=== PATIENT | female | born 1935 | race Caucasian/White ===

== ENCOUNTER 2017-02-14 16:00 | Emergency (ER) | payer MEDICARE, MEDICAID ==
[~2017-02-14] VITALS: Ht 157.5 cm; Wt 46.3 kg
[~2017-02-14 16:00] MED LIST: AMIODARONE 100100 MG; AMIODARONE 200200 MG OR; AMIODARONE 200200 MG PO; AMLODIPINE5 MG PO; ASPIRIN 81MG TA81 MG PO; AVELOX400 MG OR; AZITHROMYCIN250 M1 PO; BENADRYL25 M1 PO; CALCIUM ACETAT667 MG PO; CARVEDILOL12.5 MG PO; CEFDINIR 300MG300 MG PO; CYANOCOBAL1000 MCG/M IM; ENALAPRIL5 MG OR; ERGOCALCIFER50000 IU PO; LEVAQUIN 750 M750 MG PO; LEVAQUIN250 MG PO; LEVOTHYROXIN0.175 MG PO; LEVOTHYROXINE0.1 MG PO; LIPITOR10 MG PO; MACROBID 100MG100 MG PO; NEPHRO-VITE RX1 TAB PO; OMEPRAZOLE20 MG PO; PHENERGAN 12.12.5 M1 PO; PHENERGAN 25MG.25 M1 PO; PREDNISONE 10MG10 MG PO; PREDNISONE 20MG20 MG OR; RENVELA800 MG PO; SERTRALINE 50MG50 MG PO; SERTRALINE50 MG PO; SUNMARK MUCUS600 MG PO; TRIAMCINOLON 0.15 GM TP; Tramadol HCl50 MG PO; VIBRAMYCIN 100100 MG PO; VITAMIN D1000 IU PO; VITAMIN D2400 IU; ZITHROMAX 250M250 MG PO; ZITHROMAX Z PA250 MG PO; ZOFRAN ODT4 MG PO; ZOFRAN4 MG PO
[2017-02-14] MEDS ORDERED: ZOFRAN4 MG PO (16:11)
[2017-02-14] MEDS ORDERED: RENA-VITE RX1 TAB PO (16:17)
[2017-02-14] MEDS ORDERED: DONEPEZIL 10MG10 MG PO (16:17)
[2017-02-14 16:52] LABS: HEMOGLOBIN 12.3 g/dL (12.2-16.2); LYMPH # 0.6 K/mm3 (0.7-4.5); LYMPH % 18.2 % (10-50.0)
[2017-02-14] MEDS ORDERED: ZOFRAN ODT4 MG PO (17:30)
--- NOTE | 2017-02-14 17:30 | Emergency Room Report ---
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 PT REPORTS THAT DESTINY WAS AT HER HOUSE TO SEE HER YESTERDAY FOR THERAPY ON HER RIGHT ARM BUT SHE WAS TOO SICK AND UNABLE TO PARTICIPATE. PT REPORTS THAT SHE FELL LAST MONDAY AND INJURED RIGHT ARM. 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 N Clinical Suspician of Infection? N Mental Status: 1 - Regular (Normal Baseline) Sepsis Risk:Low Sepsis Risk Have you (or family members/close friends) recently traveled outside the [place]? N If Yes, where/when: Have you had exposure to infectious disease within the past month? N TB? Other? Specify: Patient had loose stools today, no blood, no fever, no abdominal pain. Had HD today. Recently injured right arm and seen by her PCP for this. She states that for the past month or two she vomits after she eats. She has no chest pain today or palpitations. She was given Zofran per EMS HAT PARTS CUTTER MACHINE and nausea and vomiting have abated. ALLERGIES Coded Allergies: Sulfa (Sulfonamide Antibiotics) (12/02/15) cephalexin (12/02/15) clopidogrel (12/02/15) guaifenesin (12/02/15) Home Medications Reported Medications ASPIRIN (Aspirin) 81 MG PO DAILY Levothyroxine Sodium (Levothyroxine 0.175MG) 0.175 MG PO DAILY Calcium Acetate 2 CAP PO CC Sertraline Hcl (Sertraline 50MG) 50 MG PO QHS Amiodarone Hcl (Amiodarone 200MG) 100 MG PO DAILY CHOLECALCIFEROL (VITAMIN D3) (Vitamin D3) 2,000 IUNITS PO DAILY Sevelamer Carbonate (Renvela) 800 MG PO DAILY ONDANSETRON HCL (Zofran 4MG Tab) 4 MG PO DAILY DONEPEZIL HCL (Donepezil 10MG Tablet) 5 MG PO QHS VIT B CMPLX 3/FA/VIT C/BIOTIN (Leatha-[facility] Rx Tablet) 1 TAB PO DAILY History Medical History General CAD? Yes Angina: Yes [place]: Yes Hypertension? Yes Hyperlipidemia? Yes CHF? Yes DVT? No PE? No COPD? Yes Asthma? No Anemia? No GERD? Yes Gastric ulcers? No GI Bleed? No Hernia? No Thyroid Problems? Yes Hypothyroidism? Yes CVA? No Seizures? No Diabetes? No Renal Insuffiency? Yes End Stage Renal Disease? Yes UTI? Yes Stones? No BPH? No GB Disease: Yes Nephritic Syndrome? No Asplenia? No Hepatitis? No Sickle Cell Disease? No Arthritis? Yes Migraines? No Cataracts? No Glaucoma? No MRSA? No HIV? No TB? No Anxiety? Yes Depression? Yes Cancer? No More? No Immunization Hx DT/Tetanus Unknown Flu [id number] Flu Season Pneumonia Received In Past Surgical Hx Previous Surgery?Y CARDIAC BYPASS 2000 GALLBLADDER THYROIDECTOMY SHILEY CATH RT CHEST 12/01 FISTULA L ARM 04/02 PACEMAKER 12/14/09 BILAT EYE SURG. Family History Family Hx Diabetes Yes CAD Yes Hypertension No Hyperlipidemia No Cancer Yes TB No Social History Smoking Hx Smoker: Former Smoker Tobacco: No Packs/day N/A Alcohol Alcohol: No Review of Systems All Other Systems Reviewed and Negative Gastrointestinal see HPI, denies abdominal pain, denies constipation, diarrhea, nausea, vomiting Musculoskeletal see HPI Physical Exam Vital Signs Vital Signs Date Time Temp Pulse Resp B/P Pulse O2 O2 Flow FiO2 Ox Delivery Rate 02/14 1717 71 20 185/84 100 2 02/14 1601 97.7 70 20 187/65 100 2 General Appearance normal appearance, WD/WN, no apparent distress Eye Exam - bilateral eye normal exam, bilateral eye PERRL, bilateral eye EOMI Neck normal inspection, non-tender, supple, full range of motion Respiratory Status Yes: trachea midline, chest symmetrical, non tender chest. No: respiratory distress, tender on palpation, use of accessory muscles, pain on inspiration, pain on expiration, productive cough, non productive cough. Lung Sounds bilateral: normal breath sounds, lungs clear. 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 No Results/Orders Laboratory Tests 02/14/17 1640: Lactic Acid 0.8 02/14/17 1640: Sodium 139, Potassium 4.6, Chloride 103, Carbon Dioxide 33 H, BUN 9, Creatinine 2.5 H, Estimated Creat Clear 13 L, Estimated GFR (MDRD) 18 *L, Glucose 101, Calcium 8.1 L, Total Bilirubin 0.5, AST 19, ALT 20, Alkaline Phosphatase 186 H , Total Protein 7.3, Albumin 3.4, Globulin 3.9 H, Albumin/Globulin Ratio 0.9 L , WBC 3.1 L, RBC 3.90 L, Hgb 12.3, Hct 42.5, MCV 109.0 H, RDW 15.1, Plt Count 90 L, MPV 6.4 L, Gran % 73.4, Gran # 2.3, Lymphocytes % 18.2, Monocytes % 5.7, Eosinophils % 2.2, Basophils % 0.5, Lymphocytes # 0.6 L, Monocytes # 0.2, Eosinophils # 0.1, Basophils # 0.0, PUBS MCHC 29.0 L, MCH 31.6 H 02/14/17 1627: Urine Color Cancelled, Urine Appearance Cancelled, Urine pH Cancelled, Ur Specific [place] Cancelled Orders Procedure Date/time Status LACTIC ACID 02/14 1631 Complete CHEST-PORTABLE 02/14 1627 Active CULTURE, BLOOD 02/14 1627 Active CBC WITH AUTO DIFF 02/14 1627 Complete CHEM 12 PROFILE 02/14 1627 Complete Progress ED Progress Notes Date 02/14/17 Time 1728 Comment PO fluids Departure Departure Time of Disposition 1728 Disposition DC Home or Self Care(routine) Clinical Impression Primary Impression: Vomiting and diarrhea Condition STABLE Referrals Jens Brooks MD (Family) Patient Instructions Diarrhea (Alternative Therapy) Additional Instructions Zofran, see Dr. Brooks in one to two days for recheck blood pressure and recheck for vomiting and diarrhea. Discharge Counseling Counseled pt/family regarding diagnosis, test results, medications/RX, home care, follow up needs Prescriptions Current Visit Scripts Ondansetron (Zofran 4MG Odt) 4 MG PO Q6HP PRN NAUSEA AND VOMITING #6 ODT ED Critical Care Critical Care No at [id number]
--- NOTE | 2017-02-14 17:30 | Emergency Room Report ---
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 PT REPORTS THAT DESTINY WAS AT HER HOUSE TO SEE HER YESTERDAY FOR THERAPY ON HER RIGHT ARM BUT SHE WAS TOO SICK AND UNABLE TO PARTICIPATE. PT REPORTS THAT SHE FELL LAST MONDAY AND INJURED RIGHT ARM. 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 N Clinical Suspician of Infection? N Mental Status: 1 - Regular (Normal Baseline) Sepsis Risk:Low Sepsis Risk Have you (or family members/close friends) recently traveled outside the [place]? N If Yes, where/when: Have you had exposure to infectious disease within the past month? N TB? Other? Specify: Patient had loose stools today, no blood, no fever, no abdominal pain. Had HD today. Recently injured right arm and seen by her PCP for this. She states that for the past month or two she vomits after she eats. She has no chest pain today or palpitations. 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 ALLERGIES Coded Allergies: Sulfa (Sulfonamide Antibiotics) (12/02/15) cephalexin (12/02/15) clopidogrel (12/02/15) guaifenesin (12/02/15) Home Medications Reported Medications ASPIRIN (Aspirin) 81 MG PO DAILY Levothyroxine Sodium (Levothyroxine 0.175MG) 0.175 MG PO DAILY Calcium Acetate 2 CAP PO CC Sertraline Hcl (Sertraline 50MG) 50 MG PO QHS Amiodarone Hcl (Amiodarone 200MG) 100 MG PO DAILY CHOLECALCIFEROL (VITAMIN D3) (Vitamin D3) 2,000 IUNITS PO DAILY Sevelamer Carbonate (Renvela) 800 MG PO DAILY ONDANSETRON HCL (Zofran 4MG Tab) 4 MG PO DAILY DONEPEZIL HCL (Donepezil 10MG Tablet) 5 MG PO QHS VIT B CMPLX 3/FA/VIT C/BIOTIN (Leatha-[facility] Rx Tablet) 1 TAB PO DAILY History Medical History General CAD? Yes Angina: Yes [place]: Yes Hypertension? Yes Hyperlipidemia? Yes CHF? Yes DVT? No PE? No COPD? Yes Asthma? No Anemia? No GERD? Yes Gastric ulcers? No GI Bleed? No Hernia? No Thyroid Problems? Yes Hypothyroidism? Yes CVA? No Seizures? No Diabetes? No Renal Insuffiency? Yes End Stage Renal Disease? Yes UTI? Yes Stones? No BPH? No GB Disease: Yes Nephritic Syndrome? No Asplenia? No Hepatitis? No Sickle Cell Disease? No Arthritis? Yes Migraines? No Cataracts? No Glaucoma? No MRSA? No HIV? No TB? No Anxiety? Yes Depression? Yes Cancer? No More? No Immunization Hx DT/Tetanus Unknown Flu [id number] Flu Season Pneumonia Received In Past Surgical Hx Previous Surgery?Y CARDIAC BYPASS 2000 GALLBLADDER THYROIDECTOMY SHILEY CATH RT CHEST 12/01 FISTULA L ARM 04/02 PACEMAKER 12/14/09 BILAT EYE SURG. Family History Family Hx Diabetes Yes CAD Yes Hypertension No Hyperlipidemia No Cancer Yes TB No Social History Smoking Hx Smoker: Former Smoker Tobacco: No Packs/day N/A Alcohol Alcohol: No Review of Systems All Other Systems Reviewed and Negative Gastrointestinal see HPI, denies abdominal pain, denies constipation, diarrhea, nausea, vomiting Musculoskeletal see HPI Physical Exam Vital Signs Vital Signs Date Time Temp Pulse Resp B/P Pulse O2 O2 Flow FiO2 Ox Delivery Rate 02/14 1717 71 20 185/84 100 2 02/14 1601 97.7 70 20 187/65 100 2 General Appearance normal appearance, WD/WN, no apparent distress Eye Exam - bilateral eye normal exam, bilateral eye PERRL, bilateral eye EOMI Neck normal inspection, non-tender, supple, full range of motion Respiratory Status Yes: trachea midline, chest symmetrical, non tender chest. No: respiratory distress, tender on palpation, use of accessory muscles, pain on inspiration, pain on expiration, productive cough, non productive cough. Lung Sounds bilateral: normal breath sounds, lungs clear. 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 No Results/Orders Laboratory Tests 02/14/17 1640: Lactic Acid 0.8 02/14/17 1640: Sodium 139, Potassium 4.6, Chloride 103, Carbon Dioxide 33 H, BUN 9, Creatinine 2.5 H, Estimated Creat Clear 13 L, Estimated GFR (MDRD) 18 *L, Glucose 101, Calcium 8.1 L, Total Bilirubin 0.5, AST 19, ALT 20, Alkaline Phosphatase 186 H , Total Protein 7.3, Albumin 3.4, Globulin 3.9 H, Albumin/Globulin Ratio 0.9 L , WBC 3.1 L, RBC 3.90 L, Hgb 12.3, Hct 42.5, MCV 109.0 H, RDW 15.1, Plt Count 90 L, MPV 6.4 L, Gran % 73.4, Gran # 2.3, Lymphocytes % 18.2, Monocytes % 5.7, Eosinophils % 2.2, Basophils % 0.5, Lymphocytes # 0.6 L, Monocytes # 0.2, Eosinophils # 0.1, Basophils # 0.0, PUBS MCHC 29.0 L, MCH 31.6 H 02/14/17 1627: Urine Color Cancelled, Urine Appearance Cancelled, Urine pH Cancelled, Ur Specific [place] Cancelled Orders Procedure Date/time Status LACTIC ACID 02/14 1631 Complete CHEST-PORTABLE 02/14 1627 Active CULTURE, BLOOD 02/14 1627 Active CBC WITH AUTO DIFF 02/14 1627 Complete CHEM 12 PROFILE 02/14 1627 Complete Progress ED Progress Notes Date 02/14/17 Time 1728 Comment PO fluids Departure Departure Time of Disposition 1728 Disposition DC Home or Self Care(routine) Clinical Impression Primary Impression: Vomiting and diarrhea Condition STABLE Referrals Jens Brooks MD (Family) Patient Instructions Diarrhea (Alternative Therapy) Additional Instructions Zofran, see Dr. Brooks in one to two days for recheck blood pressure and recheck for vomiting and diarrhea. Discharge Counseling Counseled pt/family regarding diagnosis, test results, medications/RX, home care, follow up needs Prescriptions Current Visit Scripts Ondansetron (Zofran 4MG Odt) 4 MG PO Q6HP PRN NAUSEA AND VOMITING #6 ODT ED Critical Care Critical Care No at [id number]
[2017-02-14 18:52] LABS: STOOL OCCULT BLOOD NEGATIVE (NEG)
[2017-02-14 20:10] VITALS: BP 156/86
--- NOTE | 2017-02-15 06:30 | RADIOLOGY REPORT PS360 ---
CHEST-PORTABLE HISTORY: Heart disease NAUSEA AND VOMITING PAST 2 DAYS, CARDIAC HX. ORDERING PHYSICIAN: Camille Victoria MD PATIENT AGE: 81 years COMPARISON: 12/02/2015 FINDINGS: There has been prior median sternotomy with a dual chamber pacemaker present. There is cardiomegaly with pulmonary venous congestion and small bilateral effusions consistent with congestive heart failure. A concave deformity involves the left humeral head laterally consistent with a Hill-Sachs deformity. IMPRESSION: Congestive heart failure with small bilateral effusions.
--- NOTE | 2017-02-15 06:32 | RADIOLOGY REPORT PS360 ---
CT HEAD W/O CONTRAST HISTORY: Dizziness, confusion, weakness DIZZY ORDERING PHYSICIAN: Camille Victoria MD PATIENT AGE: 81 years COMPARISON: 08/05/2015 TECHNIQUE: Axial images obtained without contrast. Brain and bone windows reviewed. FINDINGS: No midline shift, mass effect, intracranial hemorrhage, hydrocephalus, or extra-axial fluid collection is evident. There is mild Nichole atrophy with hypoattenuation periventricular region consistent with ischemic gliotic change from microvascular disease. 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 The calvarium has an unremarkable appearance. No mastoid effusion. The visualized paranasal sinuses are unremarkable. IMPRESSION: 1. No acute intracranial findings. 2. Atrophy with chronic ischemic change.
== END 2017-02-14 20:17 | disposition home or self-care (01) ==
LOC: ER 16:00
PROVIDERS: Emergency Medicine
DX: R11.10 Vomiting, unspecified (principal); R19.7 Diarrhea, unspecified; I25.10 Atherosclerotic heart disease of native coronary artery without angina pectoris; I10 Essential (primary) hypertension; J44.9 Chronic obstructive pulmonary disease, unspecified; K21.9 Gastro-esophageal reflux disease without esophagitis; F41.8 Other specified anxiety disorders
CPT/HCPCS: G0328; J2405